=== PATIENT | male | born 1960 | race Caucasian/White ===

== ENCOUNTER 2021-11-16 08:17 | Emergency (ER) | payer MEDICARE, MEDICAID, SELFPAY ==
--- NOTE | ~2021-11-16 | XR_ITS ---
EXAMINATION: XR CHEST CLINICAL INFORMATION: Cough and shortness of breath COMPARISON: None TECHNIQUE: 2 views of the chest were obtained. FINDINGS: Abnormal reticular markings predominate centrally suggesting airways disease. Patchy oligemia in the right upper lobe. Favor underlying lung disease such as emphysema. No focal pneumonia. No effusion. Nodular opacities at the lung bases over the anterior fifth ribs consistent with nipple shadows. Heart and mediastinum within normal limits with a moderate aortic ectasia. No mass or adenopathy. No edema. Probable azygous fissure a variant. Nonobstructive gas pattern. No acute osseous finding. XR/XR chest 2V IMPRESSION: Airways disease.
[2021-11-16 08:31] VITALS: BP 140/90; BP 143/82; PULSE 79; PULSE 88; RESP 18; TEMP 36.9; O2SAT 96; O2SAT 97; BMI 35.4
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
--- NOTE | 2021-11-16 08:48 | ECG_ITS ---
Test Reason : DYSPNEA Blood Pressure : / mmHG Vent. Rate : 076 BPM Atrial Rate : 076 BPM P-R Int : 148 ms QRS Dur : 122 ms QT Int : 388 ms P-R-T Axes : 003 -10 083 degrees QTc Int : 436 ms Normal sinus rhythm Cannot exclude Inferior infarct , age undetermined Borderline ECG No previous ECGs available Referred By: Ash Villeda Electronically Signed By:UMA SCHUSTER
[2021-11-16 09:05] LABS: MANUAL DIFF FLAG NO
[2021-11-16 09:11] LABS: Basophils Absolute Auto 0.1 X10*3/uL (0.0-0.2); Basophils Percent Auto 0.6 % (0-2); Eosinophils Absolute Auto 0.3 X10*3/uL (0.0-0.4); Eosinophils Percent Auto 2.7 % (0-4); Hematocrit 46.9 % (42.0-52.0); Hemoglobin 15.6 g/dl (14.0-18.0); Imm Gran Abs Auto 0.03 X10*3/uL (0.00-0.03); Imm Gran Pct Auto 0.3 % (0.0-0.4); Lymphocytes Absolute Auto 2.5 X10*3/uL (1.2-4.9); Lymphocytes Percent Auto 26.2 % (20-40); Mean Corpuscular HGB Conc 33.3 g/dl (31.0-36.0); Mean Corpuscular Volume 87.2 fL (80.0-98.0); Mean Platelet Volume 9.1 fL (9.4-12.4); Monocytes Absolute Auto 0.9 X10*3/uL (0.1-1.2); Monocytes Percent Auto 9.9 % (2-11); Neutrophils Absolute Auto 5.7 x10*3/uL (2.0-8.3); Neutrophils Percent Auto 60.3 % (45-73); Platelet Count 341 X10*3/uL (160-400); Red Blood Count 5.38 X10*6/uL (4.60-5.80); Red Cell Distribution Width 12.8 % (11.0-16.0); White Blood Count 9.5 X10*3/uL (4.8-10.8)
[2021-11-16 09:23] LABS: Alanine Aminotransferase 36 U/L (0-40); Albumin Level 4.1 g/dL (3.5-5.0); Alkaline Phosphatase 108 U/L (39-117); Anion Gap 12 (12-20); Aspartate Amino Transferase 23 U/L (5-37); Bilirubin Total 0.4 mg/dL (0.0-1.0); Blood Urea Nitrogen 23 mg/dL (9-16); Calcium 9.2 mg/dL (8.4-10.2); Carbon Dioxide 23 mmol/L (22-29); Chloride 108 mmol/L (96-108); Creatinine Clr Calc Pharmacy 92.2; Estimated Glomerular Filt Rate > 60; Glucose Random 129 mg/dL (60-115); Lipase 53 U/L (8-78); Potassium 4.1 mmol/L (3.3-5.1); Sodium 139 mmol/L (135-145); Total Protein 6.9 g/dL (6.5-8.0)
[2021-11-16 09:29] LABS: Troponin-I High Sensitivity 5.1 ng/L (<3.5-35.0)
[2021-11-16 09:39] LABS: COVID-19 Test Negative (Negative); IDNOW Serial# 9DB6401D
[2021-11-16] MEDS: methylPREDNISolone Sod Succ 125 MG/2 ML VIAL IVPUSH (09:50)
[2021-11-16] MEDS: Ketorolac Tromethamine 15 MG/ML VIAL IVPUSH (09:50)
[2021-11-16 10:31] VITALS: BP 128/73; PULSE 72; RESP 18; TEMP 36.8; O2SAT 97
[2021-11-16 10:59] VITALS: PULSE 71; RESP 18; O2SAT 98
[2021-11-16] MEDS: Albuterol Sulfate (0.083%) 2.5 MG/3 ML VIAL.NEB INHALE (10:59)
== END 2021-11-16 12:20 | disposition home or self-care (01) ==
PROVIDERS: Emergency Provider Emergency Medicine Emergency Medical Services; PCP Internal Medicine
DX: J44.1 Chronic obstructive pulmonary disease with (acute) exacerbation (principal); J20.9 Acute bronchitis, unspecified; J44.0 Chronic obstructive pulmonary disease with (acute) lower respiratory infection; I25.2 Old myocardial infarction; Z86.73 Personal history of transient ischemic attack (TIA), and cerebral infarction without residual deficits; Z87.891 Personal history of nicotine dependence; Z20.822 Contact with and (suspected) exposure to COVID-19
CPT/HCPCS: 36415; 71046; 80053; 83690; 84484; 85025; 87635; 93005; 96374; 96375; 99284; 99285; J1885; J2930

== ENCOUNTER 2022-03-08 14:47 | Emergency (ER) | payer MEDICARE, MEDICAID, SELFPAY ==
[2022-03-08 14:54] VITALS: BP 143/69; BP 172/102; PULSE 79; PULSE 85; RESP 18; TEMP 36.2; O2SAT 96; O2SAT 97; BMI 31.9
== END 2022-03-08 17:01 | disposition left against medical advice (07) ==
PROVIDERS: Emergency Provider Emergency Medicine
DX: M25.552 Pain in left hip (principal)
CPT/HCPCS: 99281

== ENCOUNTER 2023-08-30 15:12 | Emergency (ER) | payer MEDICARE, MEDICAID, SELFPAY ==
--- NOTE | ~2023-08-30 | CT_ITS ---
EXAM: CT HEAD WITHOUT CONTRAST CT CERVICAL SPINE INDICATION: Reason for Exam head trauma TECHNIQUE: A noncontrast CT scan was performed from the skull base to the vertex. A noncontrast CT scan of the cervical spine was performed from the base of the skull through T1 at 2.5 mm and 0.625 mm collimation. Coronal and sagittal reformats were obtained at the acquisition workstation. This CT examination was performed using dose optimization techniques as appropriate, variously including the following: * Automated exposure control * Adjustment of mA and/or kV according to patient size (this includes techniques or standardized protocols for targeted exams where dose is matched to indication/reason for exam; i.e. extremities or head) * Use of iterative reconstruction technique Dose length product is 956 mGy-cm. COMPARISON: None FINDINGS: Head: There is no evidence of acute intracranial hemorrhage or edematous territorial infarction. No abnormal mass effect or midline shift is seen. Mustafa to white matter differentiation is well preserved. No abnormal extra-axial fluid collections are identified. Commensurate prominence of the ventricles and sulci is compatible with generalized parenchymal volume loss. There is mild periventricular and subcortical white matter hypoattenuation, most likely representing microangiopathic disease. No acute calvarial fracture.. Paranasal sinuses and mastoid air cells are well-aerated. Cervical Spine: The atlantooccipital and atlantoaxial articulations remain well aligned. Straightening of the normal cervical lordosis. The posterior alignment of the vertebral bodies on the sagittal sequence appears maintained. There is severe diffuse mixed sclerotic and lytic disease throughout the visualized bones. There is prominent lytic disease in the T1 vertebral body; there is slight undulation and irregularity of the superior endplate, with areas of apparent cortical disruption, as well as cortical disruption along the anterior aspect of the vertebral body as well. This could be related to lytic disease, but acute fracture superimposed on the underlying disease process cannot be excluded. No significant vertebral body compression is seen. There is mild depression of the superior endplate of T2, the superior and inferior endplate of T3 vertebral bodies. Question some prevertebral soft tissue swelling along the cervicothoracic junction, evaluation limited by imaging obtained in angled plane. There is heterogeneity of the thyroid gland. See CT chest for the lung findings. CT/CT cervical spine wo IV con IMPRESSION: 1. No evidence of acute intracranial hemorrhage or edematous territorial infarction. 2. Severe diffuse lytic and sclerotic disease throughout the visualized spine.. 3. Findings in the T1 vertebral body, could be related to severe lytic disease. Acute fracture superimposed on the underlying lytic disease cannot be excluded. 4. Superior endplate depression of T2 vertebral body. Superior and inferior endplate depression of T3 vertebral body. This could be related to underlying bony disease versus fracture superimposed on the underlying bony disease. 5. MRI evaluation as clinically indicated. This result was discussed with Dr. Hernandez at 6:00 PM on 08/30/2023 and it was ascertained that the content and urgency of the report was understood at the time of direct communication.
--- NOTE | ~2023-08-30 | CT_ITS ---
EXAMINATION: CT CHEST, ABDOMEN AND PELVIS WITH CONTRAST. CT THORACIC AND LUMBAR SPINE WITHOUT CONTRAST FINDINGS: CHEST: MEDIASTINUM: There is no mediastinal hematoma. There are no enlarged mediastinal or hilar lymph nodes. There is no suspicious abnormality of the esophagus. VASCULAR: There is moderate coronary artery calcification. The left ventricle appears dilated. There is no evidence of a thoracic aortic injury. There is a reservoir the left upper chest wall with a vascular catheter terminating in the SVC. The central pulmonary arteries are not opacified due to timing of the scan. There is no evidence of an injury in the region of the aortic isthmus. LUNG: Limited by motion artifact. No suspicious abnormality the trachea or mainstem bronchi. There is severe centrilobular emphysema. There is some apical pleural and parenchymal thickening which may be postinflammatory scarring. There are some scattered calcified granulomata. There is no evidence of a lung injury. PLEURA: There is a small amount of left pleural fluid. No pneumothorax demonstrated CHEST WALL/AXILLA: Almost absence of subcutaneous fat. ABDOMEN/PELVIS : LIVER : There is no evidence of liver injury. There is a circumscribed small round low attenuating lesion in the dome of the right lobe of the liver and an even smaller low attenuating lesion in hepatic segment 7. These are too small to characterize but could represent cysts. GALLBLADDER, AND BILIARY TREE the gallbladder is distended. There are small gallstones. The common duct is no large opaque duct calculus. The distal common duct is not optimally evaluated PANCREAS: No large pancreatic mass. The pancreatic duct is top normal. SPLEEN: There is peripheral calcification along the lateral aspect of the spleen consistent with a remote insult. No evidence of acute splenic injury. ADRENAL GLANDS: No suspicious adrenal mass KIDNEYS AND URETERS: There is marked dilation of the intrarenal collecting system and ureter on both sides to the level of the pelvis. No suspicious renal mass. URINARY BLADDER: The bladder is markedly dilated. The bladder extends to the L4 level. The bladder wall is somewhat thickened. GASTROINTESTINAL TRACT: Limited by absence of fat. Gas and fecal residue throughout the colon. No disproportionate small bowel dilation. There is fluid within the distal stomach. No CT evidence of acute appendicitis. VASCULAR STRUCTURES: There is marked arterial calcification. No abdominal aortic aneurysm. There is no large retroperitoneal hematoma. LYMPH NODES: No measurably enlarged lymph nodes. No large amount of free intraperitoneal fluid. PELVIC VISCERA: No large abnormality FREE FLUID: No convincing evidence of hemoperitoneum. ABDOMINAL WALL: No significant hernia is appreciated. OSSEOUS STRUCTURES : There is severe diffuse mixed sclerotic and lytic disease throughout the visualized skeleton. There is a severe fracture or subluxation centered at T9. T9 is markedly abnormal with marked loss of volume. Bone projects into the spinal canal and markedly narrows the canal. There is much less severe compression deformity at T6. Diffuse sclerotic and lytic process throughout the visualized spine. Additional pathologic fractures could occur. This was not present at the time of the lateral view of the chest 11/16/21 There has been instrumentation of the left humerus. There is extensive disease within the scapula, visualized humerus, sternum, clavicles, every level of the spine and essentially all the ribs. Severe lytic and sclerotic lesions throughout the entire pelvis and visualized proximal femora. THORACIC AND LUMBAR SPINE: Severe kyphosis secondary to pathologic fracture with spinal canal compromise at T9. Lesser degree of pathologic fracture at T6. CT/CT abdomen pelvis w IV con IMPRESSION: No mediastinal hematoma or pneumothorax. No convincing solid visceral injury. 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 This may account for urinary retention with bladder distention and dilation of the urinary collecting systems. Less severe probable pathologic fracture at T6. The patient is at high risk for developing additional pathologic fractures Severe underlying emphysema. Distended gallbladder with cholelithiasis and dilation of the common duct This critical result was discussed with Dr. Hernandez at 1704 on 08/30/23 and it was ascertained that the content and urgency of the report was understood at the time of direct communication. We specifically discussed the potential for spinal cord compromise and impending paraplegia secondary to spinal cord injury.
[2023-08-30 15:22] VITALS: BP 112/57; BP 126/80; PULSE 64; PULSE 71; RESP 16; TEMP 36.4; O2SAT 98; BMI 21.3
--- NOTE | 2023-08-30 15:27 | ECG_ITS ---
Test Reason : FALL Blood Pressure : / mmHG Vent. Rate : 069 BPM Atrial Rate : 069 BPM P-R Int : 132 ms QRS Dur : 126 ms QT Int : 430 ms P-R-T Axes : 033 -12 085 degrees QTc Int : 460 ms Normal sinus rhythm Non-specific intra-ventricular conduction block Abnormal ECG When compared with ECG of 16-NOV-2021 09:06, No significant change was found Referred By: Rain Hernandez Electronically Signed By:Freedom Santana
[2023-08-30 15:44] LABS: MANUAL DIFF FLAG NO
[2023-08-30 15:45] LABS: Basophils Percent Auto 0.4 % (0-2); Eosinophils Absolute Auto 0.1 X10*3/uL (0.0-0.4); Eosinophils Percent Auto 2.1 % (0-4); Hematocrit 23.9 % (42.0-52.0); Hemoglobin 7.7 g/dl (14.0-18.0); Imm Gran Abs Auto 0.23 X10*3/uL (0.00-0.03); Imm Gran Pct Auto 4.1 % (0.0-0.4); Lymphocytes Absolute Auto 0.6 X10*3/uL (1.2-4.9); Lymphocytes Percent Auto 9.9 % (20-40); Mean Corpuscular HGB Conc 32.2 g/dl (31.0-36.0); Mean Corpuscular Hemoglobin 28.5 pg (27.0-33.0); Mean Corpuscular Volume 88.5 fL (80.0-98.0); Mean Platelet Volume 8.8 fL (9.4-12.4); Monocytes Absolute Auto 0.9 X10*3/uL (0.1-1.2); Monocytes Percent Auto 15.2 % (2-11); Neutrophils Absolute Auto 3.9 x10*3/uL (2.0-8.3); Neutrophils Percent Auto 68.3 % (45-73); Platelet Count 155 X10*3/uL (160-400); Red Cell Distribution Width 14.2 % (11.0-16.0); White Blood Count 5.7 X10*3/uL (4.8-10.8)
[2023-08-30] MEDS: HYDROmorphone HCl 0.5 MG/0.5 ML SYRINGE IVPUSH (15:47)
[2023-08-30] MEDS: ondansetron HCL 4 MG/2 ML VIAL IVPUSH (15:47)
[2023-08-30] MEDS: Lactated Ringers 1,000 ML 999 ML IV (15:47)
[2023-08-30 15:53] LABS: INTERNATIONAL NORM RATIO 1.4 (0.9-1.1); Prothrombin Time 16.9 SEC (11.1-13.3)
--- NOTE | 2023-08-30 15:57 | ED_ITS ---
HPI - Fall General Chief Complaint: Fall Stated Complaint: FALL DOWN 10 STEPS,BACK PAIN,+CCOLLAR PER EMS Time Seen by Provider: 08/30/23 15:16 Source: patient and old records reviewed Mode of arrival: EMS Limitations: no limitations History of Present Illness HPI Narrative: 63 yo male with PMH of anemia,COPD, asthma, CVA, [place] s/p stent in 2016, prostate cancer states he is treated at [facility] and has port in place. He is on chemo. He notes he has been frequently dizzy and weak with poor PO appetite. While walking today he slipped on his socks and fell doubt approx 10 steps. No LOC but did hit his head. Not on blood thinners. Has mid back pain. He was able to get up after the fall but has pain thinks he was on the ground for about 20 minutes there are no stairs in the house per family only elevator. MD complaint: fall Onset (ago): hour(s) (1) Fall from: standing Fall witnessed: no Place fall occurred: home Loss of consciousness: none Length of LOC: minutes(s) (20) Prolonged down time: no Symptoms prior to fall: none Context: tripped/slipped Location of injury: head and back Severity: severe Quality: aching Associated symptoms (after fall): denies Related Data Previous Rx's ?Medication ?Instructions ?Recorded albuterol sulfate 90 mcg/actuation 2 puff inhalation Q4-6H PRN 11/16/21 aerosol inhaler (ProAir HFA) shortness of breath or wheezing #8.5 grams azithromycin 250 mg tablet See Rx Instructions PO .COMPLEX #6 11/16/21 (Zithromax Z-Graham) tabs fluticasone furoate 200 1 inh inhalation DAILY 30 days #1 11/16/21 mcg-vilanterol 25 mcg/dose ea inhalation powder (Breo Ellipta) prednisone 20 mg tablet 60 mg (3 x 20 mg) PO DAILY 5 days 11/16/21 #15 tabs Allergies Allergy/AdvReac Type Severity Reaction Status Date / Time codeine [Codeine] Allergy Unknown UNKNOWN Verified 08/30/23 15:25 Penicillins Allergy Unknown UNKNOWN Verified 08/30/23 15:25 Review of Systems 2 Review of Systems: Constitutional : No Weight loss, No Fever, No Chills, pos malaise, pos fatigue ENT/Mouth : No Hearing loss, No Ear Pain, No Nasal Congestion, No Sinus Pain, No Hoarseness, No sore throat, No Rhinorrhea, No Swallowing Difficulty Cardiovascular : No Chest Pain, No SOB Respiratory : No Cough, No Dyspnea Gastrointestinal : No Nausea, No Vomiting, No Diarrhea, No abdominal Pain, No Hematochezia, No Melena Genitourinary : No Dysuria, No Urinary Frequency, No Hematuria, No Urinary Incontinence, Musculoskeletal : positive back pain Skin : No Skin Lesions, No rash Neuro : No Weakness, No Numbness, No Paresthesias, no loss of bowel or bladder incontinence, no saddle anesthesia all other systems reviewed and are negative PMFSH Past Medical History Attestation statement: The following information was validated with the patient. Source: old records reviewed Medical History CVA (cerebral vascular accident) CAD (coronary artery disease) COPD (chronic obstructive pulmonary disease) Prostate cancer Anemia Social History Social History Alcohol intake: never Patient Tobacco Use Status: Never used Tobacco Substance Use Type: Marijuana Advance Directives: No Advance Directives Information Provided: No Physical Exam 2 Vital Signs: Vital Signs: Last Vital Signs Temp 97.8 F 08/30/23 18:26 Pulse 60 08/30/23 18:26 Resp 12 08/30/23 18:26 BP 115/69 08/30/23 18:26 Pulse Ox 96 08/30/23 18:26 O2 Del Method Room Air 08/30/23 18:26 BMI result Body Mass Index 21.3 Appearance: Alert. Oriented X3. in pain mild acute distress. Frail and cachectic Eyes: Pupils equal, round and reactive to light. ENT: Pharynx dry MM no lacerations noted Neck: collar in place. CVS: Normal heart rate and rhythm. Pulses normal. Respiratory: No respiratory distress. Breath sounds normal. Abdomen: Soft and non-tender. Back: kyphotic with protruding contusion noted to midline back with marked ttp mid thoracic Skin: Skin warm and dry pale skin color. Normal skin turgor. Extremities: No lower extremity edema. Neuro: Oriented X 3. No motor deficit. No sensory deficit. Course Course Course Narrative: call to [facility] states most of his care is there Reevaluation(s) Reevaluation #1: patient seems more confused I do not see a bleed on CT scan Reevaluation #2: call to [facility] - refused treatment has been on hospice for 1 year. HCP DNR/DNI find injuries and treat pain has hospice at home takes 300mg a day of morphine. refusing placement in past send home Reevaluation #3: HCP states she doesn't believe he would want surgery and does not want him to undergo surgery the patient keeps saying to me what do you mean? spoke to Maldonado again he is refusing surgery and states he does not want surgery despite possibility of being paralyzed just wants to go home. [facility] HCP on board both aware he may become paralyzed at any moment. Medications Administered Discontinued Medications Generic Name Dose Route Start Last Admin Trade Name Freq PRN Reason Stop Dose Admin Hydromorphone HCl 0.5 mg 08/30/23 15:27 08/30/23 15:47 Hydromorphone Hcl 0.5 Mg/0.5 Ml Syringe IVPUSH 08/30/23 15:28 0.5 mg ONCE ONE Administration Protocol Lactated Ringer's 1,000 mls @ 999 mls/hr 08/30/23 15:30 08/30/23 15:47 Lr IV 08/30/23 16:30 999 mls/hr .Q1H1M BERENICE Administration Magnesium Sulfate 2 gm in 50 mls @ 25 mls/hr 08/30/23 16:01 08/30/23 16:47 Magnesium Sulfate/H2o IV 08/30/23 18:00 25 mls/hr ONCE ONE Administration Iohexol 100 ml 08/30/23 16:31 08/30/23 16:32 Iohexol 350 Mg/Ml 100 Ml Infus..Btl IV 08/30/23 16:32 85 ml ONCE ONE Administration Ondansetron HCl 4 mg 08/30/23 15:27 08/30/23 15:47 Ondansetron Hcl 4 Mg/2 Ml Vial IVPUSH 08/30/23 15:28 4 mg ONCE ONE Administration Medical Decision Making Medical Decision Making MDM Narrative: 63 yo male with PMH of anemia,COPD, asthma, CVA, [place] s[place] stent in 2016, prostate cancer states he is treated at [facility] at this time will need basic labs, CT scans given fall and his severe frailty. He is anemic but we have no VS since his chemo and dx. Records requested, labs, trauma scans, IV dilaudid for pain Differential Diagnosis Differential Diagnoses: The differential diagnosis associated with the presentation includes anemia, dehydration, fracture, internal injury Admission/Observation Consideration of admission/observation: Escalation of care including admission/observation considered refuses along with HCP Lab Data MDM Lab Attestation statement: I reviewed the patient's lab results. repleting low magnesium H/H - do not transfuse 08/30/23 15:39 08/30/23 15:39 Labs: Lab Results 08/30/23 Range/Units 15:39 WBC 5.7 (4.8-10.8) X10*3/uL RBC 2.70 L D (4.60-5.80) X10*6/uL Hgb 7.7 L D (14.0-18.0) g/dl Hct 23.9 L D (42.0-52.0) % MCV 88.5 (80.0-98.0) fL MCH 28.5 (27.0-33.0) pg MCHC 32.2 (31.0-36.0) g/dl RDW 14.2 (11.0-16.0) % Plt Count 155 L D (160-400) X10*3/uL MPV 8.8 L (9.4-12.4) fL Immature Gran % (Auto) 4.1 H (0.0-0.4) % Neut % (Auto) 68.3 (45-73) % Lymph % (Auto) 9.9 L (20-40) % [place] % (Auto) 15.2 H (2-11) % Eos % (Auto) 2.1 (0-4) % Baso % (Auto) 0.4 (0-2) % Lymph # (Auto) 0.6 L (1.2-4.9) X10*3/uL [place] # (Auto) 0.9 (0.1-1.2) X10*3/uL Eos # (Auto) 0.1 (0.0-0.4) X10*3/uL Baso # (Auto) 0.0 (0.0-0.2) X10*3/uL Abs Immat Gran (auto) 0.23 H (0.00-0.03) X10*3/uL Absolute Neuts (auto) 3.9 (2.0-8.3) x10*3/uL Absolute Nucleated RBC 0.000 (0.0-0.012) X10*3/uL Nucleated RBC % (auto) 0.0 (0.0-0.2) /100WBC PT 16.9 H (11.1-13.3) SEC INR 1.4 H (0.9-1.1) Sodium 133 L (135-145) mmol/L Potassium 4.1 (3.3-5.1) mmol/L Chloride 102 (96-108) mmol/L Carbon Dioxide 26 (22-29) mmol/L Anion Gap 9 L (12-20) BUN 29 H (9-16) mg/dL Creatinine 0.89 (0.5-1.4) mg/dL Estim Creat Clear Calc 75.3 Estimated GFR > 60 Random Glucose 118 H (60-115) mg/dL Calcium 8.0 L D (8.4-10.2) mg/dL Magnesium 1.4 L* (1.6-2.6) mg/dL Total Bilirubin 0.4 (0.0-1.0) mg/dL Direct Bilirubin 0.3 (0.0-0.5) mg/dL AST 14 (5-37) U/L ALT 7 (0-40) U/L Alkaline Phosphatase 995 H (39-117) U/L Total Creatine Kinase 64 (38-174) U/L Total Protein 5.9 L (6.5-8.0) g/dL Albumin 2.6 L (3.5-5.0) g/dL Lipase 15 (8-78) U/L Independent Interpretation I performed an independent interpretation of an: EKG and CT Scan (significant bony pathology he is aware refuses treatment along with HCP) Interpretation: Rate: 69 Rhythm: NSR [place]: left Normal P waves. Normal JEMIMA. NSIVCD ST T wave : inverted aVL no STEF qTC: 460 prior studies: no prior The study has been interpreted contemporaneously by me. . Radiology Impression Discussion of test interpretation with radiology: I discussed test interpretation with the radiologist and I have reviewed the radiologist's reading. Radiologist Impression: severe spine fracture T9 with angulation with bone occupying spinal canal canal compromise in addition to widespread metastatic disease pathologic fracture T6 less severe. CT head no ICH CT cspine - cervical spine lytic disease T1 - T2/T3 ventral body acute vs chronic Independent Historian Clinical information obtained from an independent historian. History obtained from or confirmed by: EMS and Other ([facility]) External Record Review External record reviewed: Outpatient record Critical Care Time Critical Care Time Critical Care Time: Yes Total Critical Care Time: 75 Attestation: review of records, IV dilaudid x 2 with improvement in pain, repeat conversations with HCP, radiology discussions, IV magnesium I attest to this time spent taking care of the patient Discharge Plan Discharge Clinical Impression: Anemia due to chronic illness, Hypomagnesemia Fracture of thoracic spine Qualifiers: Encounter type: initial encounter Thoracic vertebra fracture level: T9 Fracture type: closed Fracture morphology: unspecified fracture morphology Qualified Code(s): S22.079A - Unspecified fracture of T9-T10 vertebra, initial encounter for closed fracture Patient Disposition: Home, Self-Care Instructions: Anemia (ED), Hypomagnesemia (ED), Vertebral Compression Fracture (ED) Additional Instructions: you have severe fractures in your spine including thoracic fracture at t9 that could paralyze you at any time both you and [facility] are aware and declined any interventions. You should continue hospice and optimize your pain management and quality of life. Prescriptions: No Action azithromycin [Zithromax Z-Graham] 250 mg tablet See Rx Instructions .ROUTE .COMPLEX Qty: 6 0RF Rx Instructions: take 500 mg today (day 1), then 250 mg for 4 days (days 2-5) prednisone 20 mg tablet 60 mg PO DAILY 5 Days Qty: 15 0RF albuterol sulfate [ProAir HFA] 90 mcg/actuation HFA aerosol inhaler 2 puff inhalation Q4-6H PRN (Reason: shortness of breath or wheezing) Qty: 8.5 0RF fluticasone furoate-vilanterol [Breo Ellipta] 200-25 mcg/dose blister with device 1 inh inhalation DAILY 30 Days Qty: 1 0RF Print Language: [place]
[2023-08-30 16:01] LABS: Alanine Aminotransferase 7 U/L (0-40); Albumin Level 2.6 g/dL (3.5-5.0); Alkaline Phosphatase 995 U/L (39-117); Anion Gap 9 (12-20); Aspartate Amino Transferase 14 U/L (5-37); Bilirubin Direct 0.3 mg/dL (0.0-0.5); Bilirubin Total 0.4 mg/dL (0.0-1.0); Blood Urea Nitrogen 29 mg/dL (9-16); Carbon Dioxide 26 mmol/L (22-29); Chloride 102 mmol/L (96-108); Creatinine Clr Calc Pharmacy 75.3; Estimated Glomerular Filt Rate > 60; Glucose Random 118 mg/dL (60-115); Lipase 15 U/L (8-78); Magnesium 1.4 mg/dL (1.6-2.6); Potassium 4.1 mmol/L (3.3-5.1); Sodium 133 mmol/L (135-145); Total Protein 5.9 g/dL (6.5-8.0)
[2023-08-30] MEDS: iohexoL 350 MG/ML 100 ML INFUS..BTL IV (16:32)
[2023-08-30] MEDS: Magnesium Sulfate/H2O 2 GM/50 ML PIGGYBACK IV (16:47)
[2023-08-30 18:26] VITALS: BP 115/69; PULSE 60; RESP 12; TEMP 36.6; O2SAT 96
[2023-08-30] MEDS: HYDROmorphone HCl 1 MG/ML SYRINGE IVPUSH (18:52)
--- NOTE | 2023-08-30 19:00 | PC.NURSE ---
this rn assumed care from ems @ [facility]. power port accessed by this rn, blood work obtained adn sent to lab pt medicated according to mar per dr contreras pts sister jerome contacted states pt is on hospice and is a DNR/ DNI. pt and family refusing further treatment for vertebral fx pt awaiting ems transport back to [facility]
[2023-08-30] MEDS: Heparin Sodium,Porcine Flush 50 UNITS/5 ML SYRINGE IVFLUSH (20:12)
[2023-08-30 20:15] VITALS: BP 100/57; PULSE 63; RESP 12; TEMP 36.9; O2SAT 94
--- NOTE | 2023-08-30 20:25 | PC.NURSE ---
this rn contacted pts brother wendy to make sure family was at pt home to assist pt into home. report provided to ems prior to transfer powerport heparin locked and de accessed
[2023-08-30 20:26] VITALS: BP 100/57; PULSE 63; RESP 12; TEMP 36.9; O2SAT 94
== END 2023-08-30 20:26 | disposition home or self-care (01) ==
PROVIDERS: Emergency Provider Emergency Medicine
DX: S22.079A Unspecified fracture of T9-T10 vertebra, initial encounter for closed fracture (principal); E83.42 Hypomagnesemia; D63.8 Anemia in other chronic diseases classified elsewhere; C61 Malignant neoplasm of prostate; J44.9 Chronic obstructive pulmonary disease, unspecified; I25.2 Old myocardial infarction; Z86.73 Personal history of transient ischemic attack (TIA), and cerebral infarction without residual deficits; Z79.891 Long term (current) use of opiate analgesic; W10.9XXA Fall (on) (from) unspecified stairs and steps, initial encounter; Y93.9 Activity, unspecified; Y92.009 Unspecified place in unspecified non-institutional (private) residence as the place of occurrence of the external cause; Y99.9 Unspecified external cause status; Z66 Do not resuscitate
CPT/HCPCS: 36415; 70450; 71260; 72125; 74177; 80048; 80076; 82550; 83690; 83735; 85025; 85610; 93005; 96361; 96374; 96375; 96376; 99284; 99285; J1170; J1642; J2405; J3475; J7120; Q9967

== ENCOUNTER → 2023-08-30 15:27 | Outpatient (BNV) | payer MEDICARE, MEDICAID, SELFPAY | PROVIDERS: Emergency Provider Emergency Medicine; Visit Provider Internal Medicine Cardiovascular Disease | DX: R94.31 Abnormal electrocardiogram [ECG] [EKG] (principal) | CPT/HCPCS: 93010 ==